=== PATIENT | male | born 1985 | race African-American/Black ===

== ENCOUNTER 2017-05-07 11:55 | Observation (INO) ==
[2017-05-07 13:44] LABS: Basophils % 0.3 % (0.0-0.8); Eosinophils % 0.3 % (0.00-10.9); Hemoglobin 16.6 GM/DL (14.0-18.0); Immature Granulocytes % 0.2 %; Immature Granulocytes Absolute 0.02 #; Lymphocytes # 2.9 10*3/uL (1.4-4.0); Lymphocytes % 29.3 % (21.2-54.2); Mean Corpuscular HGB Conc 36.1 GM/DL (32-36); Mean Corpuscular Hemoglobin 29 PG (27-34); Mean Corpuscular Volume 81.6 FL (87-102); Mean Platelet Volume 9.7 FL (9.6-12.0); Monocytes # 0.6 10*3/uL (0.11-0.8); Monocytes % 5.8 % (1.7-12.7); Neutrophils # 6.4 10*3/uL (1.4-7.4); Neutrophils % 64.1 % (38.7-73.9); Platelet Count 206 T/CUMM (130-400); Red Blood Count 5.64 MC/CUMM (3.8-5.5); Red Cell Distribution Width 13.5 % (9.3-17.3)
[2017-05-07 13:59] LABS: Alanine Aminotransferase 18 U/L (16-61); Alkaline Phosphatase 62 U/L (45-117); Aspartate Amino Transferase 18 U/L (0-37); Blood Urea Nitrogen 9 MG/DL (7-18); Calcium 10.1 MG/DL (8.5-10.1); Glucose 87 MG/DL (74-106); Osmolality,Calculated 276.4 MOS/KG (273-304); Potassium 3.4 MMOL/L (3.5-5.1); Sodium 140 MMOL/L (136-145); Total Protein 8.4 G/DL (6.4-8.3); Troponin I Only < 0.015 NG/ML (0.00-0.045)
[2017-05-07 14:33] LABS: Amorphous Crystals,Urine Occasional /HPF (Few); Apearance,Urine Slightly Hazy (Clear); Bilirubin,Urine Negative (Negative); Blood, Urine Small mg/dL (Negative); Glucose,Urine (UA) Negative (Negative); Ketones,Urine 5 mg/dL (Negative); Mucus,Urine Occasional /LPF (Occasional); Nitrite,Urine Negative (Negative); Protein,Urine Negative; RBC,Urine 2 /HPF (0-4); Urine Color Yellow (Yellow); Urine Specific Gravity 1.013 (1.001-1.035); Urine Urobilinogen < 2.0 EU/DL (0.2-1.0); WBC,Urine 1 /HPF (0-6)
[2017-05-07 14:45] LABS: Barbiturates Screen,Urine Negative (Negative); Benzodiazepines Screen,Urine Negative (Negative); Cannabinoid Screen,Urine Positive (Negative); Opiate Screen,Urine Negative (Negative); Phencyclidine Screen,Urine Negative (Negative)
[2017-05-07] MEDS ORDERED: ACETAMINOPHEN 500 MG TABLET PO STA (15:06)
[2017-05-07] MEDS ORDERED: ACETAMINOPHEN 500 MG TABLET ONE (15:07)
[2017-05-07] MEDS ORDERED: ONDANSETRON 4 MG/2 ML VIAL IV PRN (17:05)
[2017-05-07] MEDS ORDERED: ACETAMINOPHEN 325 MG TABLET PO PRN (17:05)
[2017-05-07] MEDS ORDERED: ENOXAPARIN 40 MG/0.4 ML SYRINGE SUBCUT SCH (18:00)
[2017-05-07] MEDS: SODIUM CHLORIDE 0.9% 1,000 ML IV SCH (19:35)
[2017-05-07] MEDS ORDERED: POTASSIUM CHLORIDE 20 MEQ TABLET PO ONE (21:26)
[2017-05-07] MEDS: DOCUSATE SODIUM 100 MG CAPSULE PO SCH (21:43)
[2017-05-08] MEDS: SODIUM CHLORIDE 0.9% 1,000 ML IV SCH ×2 (03:05→03:28)
[2017-05-08 07:01] LABS: Troponin I Only < 0.015 NG/ML (0.00-0.045)
[2017-05-08 08:41] LABS: Hematocrit 39.3 VOL% (42.0-52.0)
[2017-05-08] MEDS ORDERED: PANTOPRAZOLE 40 MG TABLET PO SCH (09:00)
[2017-05-08 09:19] LABS: Hemoglobin 14.3 GM/DL (14.0-18.0)
[2017-05-08] MEDS: DOCUSATE SODIUM 100 MG CAPSULE PO SCH (09:21)
[2017-05-08 11:42] VITALS: BP 130/77
== END 2017-05-08 12:00 | disposition home or self-care (01) ==
LOC: N.ED 11:55 → N.EDINP 11:55 → N.3E 18:14
PROVIDERS: ADMIT Family Medicine; ATTEND Family Medicine